=== PATIENT | male | born 1955 | race Caucasian/White ===

== ENCOUNTER 2022-01-23 13:40 | Observation (INO) ==
[2022-01-23 14:32] LABS: Basophils # 0.1 10*3/uL (0.0-0.2); Basophils % 0.7 % (0.0-0.8); Eosinophils # 0.1 10*3/uL (0.0-0.87); Eosinophils % 1.2 % (0.00-10.9); Hemoglobin 13.3 GM/DL (14.0-18.0); Immature Granulocytes % 0.3 %; Immature Granulocytes Absolute 0.02 #; Lymphocytes # 1.5 10*3/uL (1.4-4.0); Mean Corpuscular HGB Conc 31.7 GM/DL (32-36); Mean Corpuscular Volume 96.6 FL (87-102); Mean Platelet Volume 11.3 FL (9.6-12.0); Monocytes # 0.6 10*3/uL (0.11-0.8); Monocytes % 8.3 % (1.7-12.7); Neutrophils % 69.5 % (38.7-73.9); Platelet Count 194 T/CUMM (130-400); Red Blood Count 4.35 MC/CUMM (3.8-5.5); Red Cell Distribution Width 14.3 % (9.3-17.3); White Blood Count 7.5 T/CUMM (4-12)
[2022-01-23 14:50] LABS: Albumin 2.5 G/DL (3.4-5.0); Bilirubin,Total 0.6 MG/DL (0.20-1.00); Calcium 8.7 MG/DL (8.5-10.1); Osmolality,Calculated 287.8 MOS/KG (273-304); Potassium 3.3 MMOL/L (3.5-5.1); Total Protein 6.5 G/DL (6.4-8.2)
[2022-01-23] MEDS ORDERED: SODIUM CHLORIDE 0.9% 2,400 ML IV ONE (15:25)
[2022-01-23] MEDS ORDERED: SODIUM CHLORIDE 0.9% 1,000 ML IV STA (15:25)
[2022-01-23] MEDS ORDERED: PIPERACILLIN/TAZOBACTAM 3,375 MG in SODIUM CHLORIDE 0.9% 100 ML IV STA (15:30)
[2022-01-23 16:54] LABS: Bacteria,Urine Many /HPF (Few); Mucus,Urine Occasional /LPF (Occasional); RBC,Urine 5 /HPF (0-4)
[2022-01-23 16:57] LABS: Urine Appearance Slightly Cloudy (Clear); Urine Color Yellow (Yellow); Urine Specific Gravity 1.025 (1.001-1.035)
[2022-01-23 16:58] LABS: Bilirubin,Urine Negative (Negative); Blood, Urine Moderate mg/dL (Negative); Glucose,Urine (UA) Negative (Negative); Ketones,Urine Negative (Negative); Nitrite,Urine Negative (Negative); Protein,Urine Negative (Negative); Urine Urobilinogen < 2.0 eU/dL (<2.0)
[2022-01-23] MEDS ORDERED: GLUCAGON 1 MG VIAL IM PRN (18:56)
[2022-01-23] MEDS ORDERED: ACETAMINOPHEN 325 MG TABLET PO PRN (18:56)
[2022-01-23] MEDS ORDERED: ONDANSETRON 4 MG/2 ML VIAL IV PRN (18:56)
[2022-01-23] MEDS ORDERED: DEXTROSE 10% 250 ML BAG IV PRN (19:02)
[2022-01-23] MEDS: ENOXAPARIN 40 MG/0.4 ML SYRINGE SUBCUT SCH (19:47)
[2022-01-23] MEDS: cefTRIAXone 2,000 MG in SODIUM CHLORIDE 0.9% 100 ML IV SCH (19:47)
[2022-01-23] MEDS: LACTATED RINGERS 1,000 ML IV SCH (19:47)
[2022-01-23] MEDS: ATORVASTATIN 40 MG TABLET PO SCH (21:28)
[2022-01-24 05:23] LABS: Basophils # 0.1 10*3/uL (0.0-0.2); Basophils % 0.7 % (0.0-0.8); Eosinophils # 0.1 10*3/uL (0.0-0.87); Eosinophils % 1.6 % (0.00-10.9); Hematocrit 39.9 VOL% (42.0-52.0); Hemoglobin 12.7 GM/DL (14.0-18.0); Immature Granulocytes % 0.3 %; Immature Granulocytes Absolute 0.02 #; Lymphocytes # 1.3 10*3/uL (1.4-4.0); Lymphocytes % 16.8 % (21.2-54.2); Mean Corpuscular HGB Conc 31.8 GM/DL (32-36); Mean Corpuscular Volume 96.1 FL (87-102); Mean Platelet Volume 10.6 FL (9.6-12.0); Monocytes # 0.6 10*3/uL (0.11-0.8); Monocytes % 8.3 % (1.7-12.7); Neutrophils % 72.3 % (38.7-73.9); Platelet Count 189 T/CUMM (130-400); Red Blood Count 4.15 MC/CUMM (3.8-5.5); Red Cell Distribution Width 14.1 % (9.3-17.3); White Blood Count 7.5 T/CUMM (4-12)
[2022-01-24 05:39] LABS: Calcium 8.3 MG/DL (8.5-10.1); Potassium 3.5 MMOL/L (3.5-5.1)
[2022-01-24 05:57] LABS: Albumin 2.2 G/DL (3.4-5.0); Bilirubin,Total 0.5 MG/DL (0.20-1.00); Calcium 7.9 MG/DL (8.5-10.1); Osmolality,Calculated 281.1 MOS/KG (273-304); Potassium 3.5 MMOL/L (3.5-5.1); Thyroid Stimulating Hormone 1.12 uIU/ml (0.358-3.74)
[2022-01-24] MEDS: LACTATED RINGERS 1,000 ML IV SCH ×2 (06:02→14:39)
[2022-01-24] MEDS: PANTOPRAZOLE 40 MG TABLET PO SCH (08:24)
[2022-01-24] MEDS: ASPIRIN EC 81 MG TABLET PO SCH (08:24)
[2022-01-24] MEDS: ENOXAPARIN 40 MG/0.4 ML SYRINGE SUBCUT SCH (21:14)
[2022-01-24] MEDS: ATORVASTATIN 40 MG TABLET PO SCH (21:14)
[2022-01-24] MEDS: levETIRAcetam 500 MG TABLET PO SCH (21:15)
[2022-01-24] MEDS: cefTRIAXone 2,000 MG in SODIUM CHLORIDE 0.9% 100 ML IV SCH (21:18)
[2022-01-25] MEDS: LACTATED RINGERS 1,000 ML IV SCH ×4 (02:09→20:59)
[2022-01-25 04:52] LABS: Basophils # 0.1 10*3/uL (0.0-0.2); Basophils % 0.5 % (0.0-0.8); Eosinophils # 0.1 10*3/uL (0.0-0.87); Eosinophils % 0.8 % (0.00-10.9); Hematocrit 44.7 VOL% (42.0-52.0); Hemoglobin 14.6 GM/DL (14.0-18.0); Immature Granulocytes % 0.3 %; Immature Granulocytes Absolute 0.03 #; Lymphocytes # 1.2 10*3/uL (1.4-4.0); Lymphocytes % 12.1 % (21.2-54.2); Mean Corpuscular HGB Conc 32.7 GM/DL (32-36); Mean Corpuscular Volume 95.1 FL (87-102); Mean Platelet Volume 10.7 FL (9.6-12.0); Monocytes # 0.7 10*3/uL (0.11-0.8); Monocytes % 7.2 % (1.7-12.7); Neutrophils % 79.1 % (38.7-73.9); Platelet Count 238 T/CUMM (130-400); Red Cell Distribution Width 13.7 % (9.3-17.3); White Blood Count 10.1 T/CUMM (4-12)
[2022-01-25 05:15] LABS: Calcium 8.7 MG/DL (8.5-10.1); Osmolality,Calculated 279.3 MOS/KG (273-304); Potassium 3.5 MMOL/L (3.5-5.1)
[2022-01-25] MEDS: ASPIRIN EC 81 MG TABLET PO SCH (09:49)
[2022-01-25] MEDS: CLOPIDOGREL 75 MG TABLET PO SCH (09:49)
[2022-01-25] MEDS: levETIRAcetam 500 MG TABLET PO SCH ×2 (09:49→20:41)
[2022-01-25] MEDS: PANTOPRAZOLE 40 MG TABLET PO SCH (09:49)
[2022-01-25] MEDS: lisinopriL 10 MG TABLET PO SCH (17:39)
[2022-01-25] MEDS: ATORVASTATIN 40 MG TABLET PO SCH (20:41)
[2022-01-25] MEDS: cefTRIAXone 2,000 MG in SODIUM CHLORIDE 0.9% 100 ML IV SCH (20:41)
[2022-01-25] MEDS ORDERED: carvediloL 3.125 MG TABLET PO SCH (21:00)
[2022-01-26 04:55] LABS: Basophils # 0.1 10*3/uL (0.0-0.2); Basophils % 0.5 % (0.0-0.8); Eosinophils # 0.1 10*3/uL (0.0-0.87); Eosinophils % 1.4 % (0.00-10.9); Hematocrit 43.2 VOL% (42.0-52.0); Immature Granulocytes % 0.3 %; Immature Granulocytes Absolute 0.03 #; Lymphocytes # 1.3 10*3/uL (1.4-4.0); Lymphocytes % 13.6 % (21.2-54.2); Mean Corpuscular HGB Conc 32.4 GM/DL (32-36); Mean Corpuscular Volume 94.9 FL (87-102); Mean Platelet Volume 10.9 FL (9.6-12.0); Monocytes % 9.7 % (1.7-12.7); Neutrophils % 74.5 % (38.7-73.9); Platelet Count 242 T/CUMM (130-400); Red Blood Count 4.55 MC/CUMM (3.8-5.5); Red Cell Distribution Width 13.9 % (9.3-17.3); White Blood Count 9.8 T/CUMM (4-12)
[2022-01-26 05:12] LABS: Calcium 8.8 MG/DL (8.5-10.1); Osmolality,Calculated 279.5 MOS/KG (273-304); Potassium 3.4 MMOL/L (3.5-5.1)
[2022-01-26] MEDS: LACTATED RINGERS 1,000 ML IV SCH ×3 (06:35→21:22)
[2022-01-26] MEDS: carvediloL 6.25 MG TABLET PO SCH ×2 (09:03→21:22)
[2022-01-26] MEDS: lisinopriL 10 MG TABLET PO SCH (09:04)
[2022-01-26] MEDS: ASPIRIN EC 81 MG TABLET PO SCH (09:04)
[2022-01-26] MEDS: levETIRAcetam 500 MG TABLET PO SCH (09:04)
[2022-01-26] MEDS: PANTOPRAZOLE 40 MG TABLET PO SCH (09:04)
[2022-01-26] MEDS: CLOPIDOGREL 75 MG TABLET PO SCH (09:04)
[2022-01-26] MEDS: TAMSULOSIN 0.4 MG CAPSULE PO SCH (09:04)
[2022-01-26] MEDS: cefTRIAXone 2,000 MG in SODIUM CHLORIDE 0.9% 100 ML IV SCH (21:22)
[2022-01-26] MEDS: ATORVASTATIN 40 MG TABLET PO SCH (21:22)
[2022-01-26] MEDS: levETIRAcetam LIQUID 100 MG/ML 30 ML/BOTTLE PO SCH (21:23)
[2022-01-27 04:50] LABS: Basophils % 0.4 % (0.0-0.8); Eosinophils # 0.1 10*3/uL (0.0-0.87); Eosinophils % 1.5 % (0.00-10.9); Hematocrit 39.2 VOL% (42.0-52.0); Hemoglobin 12.7 GM/DL (14.0-18.0); Immature Granulocytes % 0.4 %; Immature Granulocytes Absolute 0.04 #; Lymphocytes # 1.1 10*3/uL (1.4-4.0); Lymphocytes % 11.6 % (21.2-54.2); Mean Corpuscular HGB Conc 32.4 GM/DL (32-36); Mean Corpuscular Volume 95.6 FL (87-102); Monocytes # 0.8 10*3/uL (0.11-0.8); Monocytes % 8.3 % (1.7-12.7); Neutrophils % 77.8 % (38.7-73.9); Platelet Count 186 T/CUMM (130-400); White Blood Count 9.2 T/CUMM (4-12)
[2022-01-27 05:12] LABS: Calcium 8.7 MG/DL (8.5-10.1); Osmolality,Calculated 282.4 MOS/KG (273-304); Potassium 3.4 MMOL/L (3.5-5.1)
[2022-01-27] MEDS: carvediloL 6.25 MG TABLET PO SCH ×2 (10:45→22:08)
[2022-01-27] MEDS: OMEPRAZOLE ODT 20 MG TABLET PO SCH (10:45)
[2022-01-27] MEDS: ASPIRIN CHEW 81 MG TABLET PO SCH (10:45)
[2022-01-27] MEDS: TAMSULOSIN 0.4 MG CAPSULE PO SCH (10:45)
[2022-01-27] MEDS: CLOPIDOGREL 75 MG TABLET PO SCH (10:45)
[2022-01-27] MEDS: levETIRAcetam LIQUID 100 MG/ML 30 ML/BOTTLE PO SCH ×2 (10:46→22:08)
[2022-01-27] MEDS: lisinopriL 10 MG TABLET PO SCH (10:46)
[2022-01-27] MEDS: AMPICILLIN 500 MG CAPSULE PO SCH ×2 (14:31→22:08)
[2022-01-27] MEDS: ATORVASTATIN 40 MG TABLET PO SCH (22:08)
[2022-01-27] MEDS: LACTATED RINGERS 1,000 ML IV SCH (22:08)
[2022-01-28] MEDS: AMPICILLIN 500 MG CAPSULE PO SCH ×3 (08:53→22:29)
[2022-01-28] MEDS: ASPIRIN CHEW 81 MG TABLET PO SCH (08:58)
[2022-01-28] MEDS: OMEPRAZOLE ODT 20 MG TABLET PO SCH (08:59)
[2022-01-28] MEDS: carvediloL 6.25 MG TABLET PO SCH ×2 (08:59→22:30)
[2022-01-28] MEDS: CLOPIDOGREL 75 MG TABLET PO SCH (08:59)
[2022-01-28] MEDS: TAMSULOSIN 0.4 MG CAPSULE PO SCH (08:59)
[2022-01-28] MEDS: LACTATED RINGERS 1,000 ML IV SCH ×3 (08:59→12:35)
[2022-01-28] MEDS: lisinopriL 10 MG TABLET PO SCH (09:00)
[2022-01-28] MEDS: levETIRAcetam LIQUID 100 MG/ML 30 ML/BOTTLE PO SCH ×2 (09:00→22:30)
[2022-01-28] MEDS: SODIUM CHLORIDE 0.9% 1,000 ML IV SCH (12:51)
[2022-01-28] MEDS: ATORVASTATIN 40 MG TABLET PO SCH (22:29)
[2022-01-29] MEDS: AMPICILLIN 500 MG CAPSULE PO SCH ×2 (07:45→14:32)
[2022-01-29] MEDS: SODIUM CHLORIDE 0.9% 1,000 ML IV SCH (07:53)
[2022-01-29] MEDS: ASPIRIN CHEW 81 MG TABLET PO SCH (10:59)
[2022-01-29] MEDS: OMEPRAZOLE ODT 20 MG TABLET PO SCH (10:59)
[2022-01-29] MEDS: TAMSULOSIN 0.4 MG CAPSULE PO SCH (10:59)
[2022-01-29] MEDS: levETIRAcetam LIQUID 100 MG/ML 30 ML/BOTTLE PO SCH (11:00)
[2022-01-29] MEDS: lisinopriL 10 MG TABLET PO SCH (11:00)
[2022-01-29] MEDS: carvediloL 6.25 MG TABLET PO SCH (11:00)
[2022-01-29] MEDS: CLOPIDOGREL 75 MG TABLET PO SCH (11:00)
[2022-01-29 16:28] VITALS: BP 150/72
== END 2022-01-29 16:30 | disposition hospice, home (50) ==
LOC: EDBD → EDUNIT# → N.ED 13:40 → SUATTDRO 19:17 → N.EDINP 19:17 → INTOOBSV 19:17 → N.TELEN 19:20
PROVIDERS: ADMIT Emergency Medicine; ATTEND Internal Medicine

== ENCOUNTER → 2022-01-29 23:59 | Observation (INO) | END | disposition home or self-care (01) | LOC: N.2E | PROVIDERS: ADMIT Internal Medicine; ATTEND Internal Medicine ==